=== PATIENT | female | born 1965 | race African-American/Black ===

== ENCOUNTER 2019-04-13 10:45 | Emergency (ER) | payer BC ==
[2019-04-13] MEDS ORDERED: NORMAL SALINE 1000 ML 1,000 ML IV ONE ×3 (11:20→14:41)
--- NOTE | 2019-04-13 11:20 | ER Document Report ---
ED Medical Screen (RME) - General Chief Complaint: Abdominal Pain Stated Complaint: DIARRHEA,ABDOMINAL PAIN Time Seen by Provider: 04/13/19 11:13 Notes: Patient is a 53-year-old female who presents emergency department with a chief complaint of diarrhea. Patient reports intermittent diarrhea over the past 5 days. Patient reports in the past 24 hours she has had 4 episodes of diarrhea. Denies fever, denies rectal bleeding, denies recent travel out of the country or diet change. Patient denies urinary symptoms. TRAVEL OUTSIDE OF THE [place] IN LAST 30 DAYS: No - Related Data Allergies/Adverse Reactions: No Known Allergies Allergy (Verified 04/13/19 11:11) Past Medical History - Social History Chew tobacco use (# tins/day): No Frequency of alcohol use: Rare Drug Abuse: None Physical Exam - Vital signs Vitals: Temp Pulse Resp BP Pulse Ox 98 F 82 18 151/88 H 95 04/13/19 10:55 04/13/19 10:55 04/13/19 10:55 04/13/19 10:55 04/13/19 10:55 Course - Re-evaluation Re-evalutation: 04/13/19 11:19 Patient require a thorough abdominal exam once placed in a private room. Will initiate basic labs, IV fluids. I have greeted and performed a rapid initial assessment of this patient. A comprehensive ED assessment and evaluation of the patient, analysis of test results and completion of the medical decision making process will be conducted by additional ED providers. - Vital Signs Vital signs: Temp Pulse Resp BP Pulse Ox 98 F 82 18 151/88 H 95 04/13/19 10:55 04/13/19 10:55 04/13/19 10:55 04/13/19 10:55 04/13/19 10:55
[2019-04-13 11:58] LABS: ABSOLUTE EOSINOPHILS # (AUTO) 0.2 10^3/uL (0.0-0.6); ABSOLUTE LYMPHOCYTES (AUTO) 1.3 10^3/uL (0.5-4.7); ABSOLUTE MONOCYTES (AUTO) 0.5 10^3/uL (0.1-1.4); ABSOLUTE NEUT (AUTO) 4.4 10^3/uL (1.7-8.2); BASOPHILS % (AUTO) 0.5 % (0-2); HEMATOCRIT 42.9 % (36.0-47.0); HEMOGLOBIN 14.5 g/dL (12.0-15.5); MEAN CORPUSCULAR HEMOGLOBIN 30.2 pg (27.0-33.4); MEAN CORPUSCULAR HGB CONC 33.8 g/dL (32.0-36.0); MEAN CORPUSCULAR VOLUME 89 fl (80-97); MONOCYTES % (AUTO) 7.1 % (3-13); PLATELET COUNT 364 10^3/uL (150-450); RED CELL DISTRIBUTION WIDTH 14.4 % (11.5-14.0); SEGMENTED NEUTROPHILS % (AUTO) 69.4 % (42-78); TOTAL CELLS COUNTED % (AUTO) 100 %; WHITE BLOOD COUNT 6.4 10^3/uL (4.0-10.5)
[2019-04-13 12:16] LABS: ALBUMIN 4.3 g/dL (3.5-5.0); ALKALINE PHOSPHATASE 414 U/L (38-126); ANION GAP 10 (5-19); ASPARTATE AMINO TRANSFERASE 93 U/L (14-36); BILIRUBIN,DIRECT 0.5 mg/dL (0.0-0.4); BILIRUBIN,TOTAL 1.4 mg/dL (0.2-1.3); BLOOD UREA NITROGEN 13 mg/dL (7-20); CALCIUM 9.4 mg/dL (8.4-10.2); CARBON DIOXIDE 26 mmol/L (22-30); CHLORIDE 101 mmol/L (98-107); GLUCOSE 157 mg/dL (75-110); POTASSIUM 4.2 mmol/L (3.6-5.0); TOTAL PROTEIN 8.8 g/dL (6.3-8.2)
--- NOTE | 2019-04-13 12:55 | ER Document Report ---
ED General - General Chief Complaint: Abdominal Pain Stated Complaint: DIARRHEA,ABDOMINAL PAIN Time Seen by Provider: 04/13/19 11:13 Primary Care Provider: [facility] [Provider Group] - Follow up as needed HUMBERTO COSTELLO MD [ACTIVE STAFF] - Follow up as needed MARCELLA LEROY MD [ACTIVE STAFF] - Follow up as needed ALESSIO HERRERA MD [ACTIVE STAFF] - Follow up as needed Notes: 53-year-old female presents with 5-day history of diarrhea. Patient also states associated generalized abdominal pain. Patient states it had started to improve a few days ago but became worse the last 2 days. Patient states she has had 4 episodes of diarrhea in the last 24 hours. Patient states it is loose and watery and denies any blood in it. Patient denies any fever, nausea/vomiting, recent antibiotics, recent overseas travel, any diet changes. Patient also denies any urinary symptoms. TRAVEL OUTSIDE OF THE [place] IN LAST 30 DAYS: No - Related Data Allergies/Adverse Reactions: No Known Allergies Allergy (Verified 04/13/19 11:11) Past Medical History - Social History Smoking Status: Never Smoker Chew tobacco use (# tins/day): No Frequency of alcohol use: Rare Drug Abuse: None Family History: Other - did not ask Patient has suicidal ideation: No Patient has homicidal ideation: No Review of Systems - Review of Systems Notes: Constitutional: Negative for fever. HENT: Negative for sore throat. Eyes: Negative for visual changes. Cardiovascular: Negative for chest pain. Respiratory: Negative for shortness of breath. Gastrointestinal: Positive for abdominal pain and diarrhea. Negative for vomiting. Genitourinary: Negative for dysuria. Musculoskeletal: Negative for back pain. Skin: Negative for rash. Neurological: Negative for headaches, weakness or numbness. 10 point ROS negative except as marked above and in HPI. Physical Exam - Vital signs Vitals: Temp Pulse Resp BP Pulse Ox 98 F 82 18 151/88 H 95 04/13/19 10:55 04/13/19 10:55 04/13/19 10:55 04/13/19 10:55 04/13/19 10:55 - Notes Notes: GENERAL: Well-appearing, well-nourished and in no acute distress. HEAD: Atraumatic, normocephalic. EYES: Extraocular movements intact, sclera anicteric, conjunctiva are normal. NECK: Normal range of motion, supple without lymphadenopathy or JVD. ABDOMEN: Soft, nontender. No guarding, no rebound. No masses appreciated. EXTREMITIES: Normal range of motion, no pitting or edema. No clubbing or cyanosis. NEUROLOGICAL: Cranial nerves II through XII grossly intact. Normal speech, normal gait. PSYCH: Normal mood, normal affect. SKIN: Warm, Dry, normal turgor, no rashes or lesions noted. Course - Re-evaluation Re-evalutation: 04/13/19 Nontoxic, well appearing 53 y/o female presents for five day history of diarrhea with no blood and associated abd pain. No nausea/vomiting or fever. Abd soft, nontender. Low suspicion of C diff as pt has not been recently hospitalized or been on antibiotics recently. Workup was initiated. 1 L NS bolus was ordered. 04/13/19 15:46 Pt is feeling better. Liver enzymes are elevated, discussed this and all results with pt. Pt states she has been binge drinking since her mother and father last year within 6 months of each other. Pt requesting outpatient resources for grief counseling. RN to ask psych team to give outpatient resources. Pt also given referral to GI and PCP. Strict return precautions given. Pt voices understanding and agrees with plan of care. - Vital Signs Vital signs: Temp Pulse Resp BP Pulse Ox 98 F 86 16 158/101 H 98 04/13/19 10:55 04/13/19 15:36 04/13/19 15:36 04/13/19 15:36 04/13/19 15:36 - Laboratory Result Diagrams: 04/13/19 11:48 04/13/19 11:48 Laboratory results interpreted by me: 04/13/19 04/13/19 04/13/19 11:48 11:48 14:37 RDW 14.4 H Glucose 157 H Total Bilirubin 1.4 H Direct Bilirubin 0.5 H AST 93 H ALT 55 H Alkaline Phosphatase 414 H Total Protein 8.8 H Urine Blood SMALL H Urine Urobilinogen 4.0 H Discharge - Discharge Clinical Impression: Elevated liver enzymes Diarrhea Qualifiers: Diarrhea type: unspecified type Qualified Code(s): R19.7 - Diarrhea, unspecified Abdominal pain Qualifiers: Abdominal location: generalized Qualified Code(s): R10.84 - Generalized abdominal pain Condition: Stable Disposition: HOME, SELF-CARE Instructions: Abdominal Pain ([facility]) Additional Instructions: Your workup today was reassuring. Your liver enzymes were elevated, please follow up with one of the GI doctors listed to further evaluate this. Please take medication as prescribed. Drink plenty of fluids. Please follow up with your primary care doctor in 2-3 days. Return immediately to ER for any worsening symptoms, including worsening abdominal pain, nausea/vomiting, blood in stool, fever, chest pain, shortness of breath, or any other symptoms that are concerning to you. Prescriptions: Loperamide HCl [Imodium 2 mg Capsule] 2 mg PO Q4HP PRN #21 cap PRN Reason: Dicyclomine HCl [Bentyl 20 mg Tablet] 20 mg PO QID #40 tablet Forms: Return to Work Referrals: HUMBERTO COSTELLO MD [ACTIVE STAFF] - Follow up as needed MARCELLA LEROY MD [ACTIVE STAFF] - Follow up as needed [facility] [Provider Group] - Follow up as needed ALESSIO HERRERA MD [ACTIVE STAFF] - Follow up as needed
[2019-04-13 15:01] LABS: AMORPHOUS SEDIMENT,URINE TRACE /HPF; APPEARANCE,URINE CLOUDY; BILIRUBIN,URINE NEGATIVE (NEGATIVE); COLOR,URINE YELLOW; GLUCOSE, URINE NEGATIVE (NEGATIVE); KETONES,URINE NEGATIVE (NEGATIVE); LEUKOCYTE ESTERASE,URINE NEGATIVE (NEGATIVE); NITRITE,URINE NEGATIVE (NEGATIVE); PROTEIN,URINE NEGATIVE (NEGATIVE); URINE SPECIFIC GRAVITY 1.017
[2019-04-13 15:37] VITALS: BP 158/101
== END 2019-04-13 15:58 | disposition home or self-care (01) ==
LOC: ER 10:45
DX: R19.7 Diarrhea, unspecified (principal); R10.84 Generalized abdominal pain; R74.8 Abnormal levels of other serum enzymes
CPT/HCPCS: 99284; 96360; 96361; 36415; 85025; 80053; 81001; J7030